=== PATIENT | female | born 1945 | race Caucasian/White ===

== ENCOUNTER 2021-03-06 02:30 | Emergency (ER) | payer BC ==
[2021-03-06] MEDS ORDERED: Benzocaine/Cetylpyridinium/Menthol Lozenge MUCMEM STA (03:11)
--- NOTE | 2021-03-06 03:12 | EDM.PDOC ---
ED HPI GENERAL MEDICAL PROBLEM - General Chief Complaint: Drug or Alcohol Abuse Stated Complaint: DRUNK BLEACH Time Seen by Provider: 03/06/21 02:59 Source of Information: Reports: Patient History Limitations: Reports: No Limitations - History of Present Illness INITIAL COMMENTS - FREE TEXT/NARRATIVE: Hoda is a 76-year-old female presenting to the ED with concerns about an acci dental ingestion of 3 gulps of Clorox bleach. The ingestion occurred when she accidentally was stuck Clorox bleach bottle that was in her refrigerator as milk and it was not until the third Gault that she realized it was not milk. Reviewing the Clorox bleach label it is only 5.7% chlorine and 94% other substance. Poison control was contacted and stated the only thing to be worried about is some localized mucosal irritation secondary to the ingestion but there were no other concerns from poison control. This makes sense as stomach contents contain 10% HCl and it would be no different than the mucosal irritation from vomiting stomach acid. Patient denies any shortness of breath but does have some localized irritation of the throat. She has been drinking copious amounts of water since the ingestion. She denies any abdominal pain but does feel a little dizzy and has some mild nausea likely due to being anxious. 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: Psychiatric History: Reports: Anxiety Endocrine/Metabolic History: Reports: Diabetes, Type II - Infectious Disease History Infectious Disease History: Reports: Chicken Pox, Measles, Mumps - Past Surgical History GI Surgical History: Reports: Colonoscopy Social & Family History - Tobacco Use Tobacco Use Status *Q: Never Tobacco User Second Hand Smoke Exposure: No - Caffeine Use Caffeine Use: Reports: Coffee, Soda, Tea - Alcohol Use Days Per Week of Alcohol Use: 7 Number of Drinks Per Day: 1 Total Drinks Per Week: 7 - Recreational Drug Use Recreational Drug Use: No ED ROS GENERAL - Review of Systems Review Of Systems: See Below Constitutional: Reports: No Symptoms HEENT: Reports: Throat Pain (Throat irritation after ingesting Clorox bleach by accident) Respiratory: Reports: No Symptoms Cardiovascular: Reports: No Symptoms Endocrine: Reports: No Symptoms GI/Abdominal: Reports: Nausea (Mild nausea) : Reports: No Symptoms Musculoskeletal: Reports: No Symptoms Skin: Reports: No Symptoms Neurological: Reports: Dizziness (Mild dizziness) Psychiatric: Reports: Anxiety (Anxiety about accidentally ingesting Clorox) Hematologic/Lymphatic: Reports: No Symptoms Immunologic: Reports: No Symptoms ED EXAM, GENERAL - Physical Exam Exam: See Below Exam Limited By: No Limitations General Appearance: Alert, No Apparent Distress, Anxious Nose: Normal Inspection Throat/Mouth: Normal Inspection, Normal Lips, Normal Oropharynx, Normal Voice, No Airway Compromise, Other (No evidence for any acute gallagher or discoloration of the oropharynx) Head: Atraumatic, Normocephalic Neck: Normal Inspection, Supple Respiratory/Chest: No Respiratory Distress, Lungs Clear, Normal Breath Sounds. No: Rales, Rhonchi, Wheezing, Stridor Cardiovascular: Normal Peripheral Pulses, Regular Rate, Rhythm, No Murmur GI/Abdominal: Normal Bowel Sounds, Soft, Non-Tender Course - Vital Signs Last Recorded V/S: Last Vital Signs Temp 36.0 C L 03/06/21 02:53 Pulse 64 03/06/21 02:53 Resp 16 03/06/21 02:53 BP 278/79 H 03/06/21 02:53 Pulse Ox 98 03/06/21 02:53 - Re-Assessments/Exams Free Text/Narrative Re-Assessment/Exam: 03/06/21 03:17 Poison control was contacted in only advocated checking for any localized gallagher in the mouth secondary to the ingestion. Departure - Departure Time of Disposition: 03:17 Disposition: Home, Self-Care 01 Clinical Impression: Bleach ingestion Qualifiers: Encounter type: initial encounter Injury intent: accidental or unintentional Qualified Code(s): T54.91XA - Toxic effect of unspecified corrosive substance, accidental (unintentional), initial encounter - Discharge Information Referrals: PCP,None [Primary Care Provider] - Care Plan Goals: I recommend using Sucrets, Cepacol, or Chloraseptic lozenges to help with the throat discomfort related to the ingestion of the bleach. As per the recommendation of poison control, I recommend continuing to drink plenty of water over the next 24 hours. This will reduce the centration of the chlorine. I do not anticipate any long-term consequences of this. Feel free to give us a call if you have any additional concerns or return to the ED should you develop any significant worsening of symptoms. Sepsis Event Note (ED) - Evaluation Sepsis Screening Result: No Definite Risk - Focused Exam Vital Signs: Vital Signs Temp Pulse Resp BP Pulse Ox 03/06/21 02:53 36.0 C L 64 16 278/79 H 98 - Problem List & Annotations (1) Bleach ingestion SNOMED Code(s): 628613008, 334008959 Code(s): T54.91XA - TOXIC EFFECT OF UNSP CORROSIVE SUBSTANCE, ACCIDENTAL, INIT Status: Acute Priority: Low Current Visit: Yes Qualifiers: Encounter type: initial encounter Injury intent: accidental or unintentional Qualified Code(s): T54.91XA - Toxic effect of unspecified corrosive substance, accidental (unintentional), initial encounter - Problem List Review Problem List Initiated/Reviewed/Updated: Yes
== END 2021-03-06 03:27 | disposition home or self-care (01) ==
LOC: JP.ED 02:30
DX: T54.91XA Toxic effect of unspecified corrosive substance, accidental (unintentional), initial encounter (principal); E11.9 Type 2 diabetes mellitus without complications
CPT/HCPCS: 99283; A9270